=== PATIENT | male | born 1980 | race Caucasian/White ===

== ENCOUNTER 2016-11-01 15:54 | Inpatient (IN) | payer OTHER ==
[2016-11-01 16:46] VITALS: BMI 32.8
--- NOTE | 2016-11-01 18:39 | HP ---
CIWA Score - CIWA Score Nausea/Vomitin-Mild Nausea/No Vomiting Muscle Tremors: 5 Anxiety: 4-Mod. Anxious/Guarded Agitation: 4-Moderately Restless Paroxysmal Sweats: 2 Orientation: 1-Uncertain about Date Tacttile Disturbances: 0-None Auditory Disturbances: 0-None Visual Disturbances: 0-None Headache: 3-Moderate CIWA-Ar Total Score: 20 Admission ROS S - HPI Chief Complaint: WITHDRAWAL SX Allergies/Adverse Reactions: Allergies Allergy/AdvReac Type Severity Reaction Status Date / Time codeine Allergy Verified 11/01/16 18:35 Penicillins Allergy Verified 11/01/16 18:35 phenytoin sodium Allergy Verified 11/01/16 18:35 [From Dilantin] phenytoin sodium extended Allergy Verified 11/01/16 18:35 [From Dilantin] History of Present Illness: 36 YEARS OLD MALE WITH LONG HISTORY OF XANAX ALCOHOL DEPENDENCE HAS HEAD TRAUMA SEIZURE SINCE 2002 AND ANXIETY IS ADMITTED TO DETOX Exam Limitations: No Limitations - Ebola screening Have you traveled outside of the country in the last 21 days: No Have you had contact with anyone from an Ebola affected area: No Have you been sick,other than usual withdrawal symptoms: No Do you have a fever: No - Review of Systems Constitutional: Chills, Changes in sleep, Weight Stable EENT: reports: No Symptoms Reported Respiratory: reports: No Symptoms reported Cardiac: reports: No Symptoms Reported GI: reports: Poor Fluid Intake, Abdominal cramping : reports: No Symptoms Reported Musculoskeletal: reports: Back Pain (SURGERIES), Joint Pain, Muscle Pain, Neck Pain Integumentary: reports: No Symptoms Reported Neuro: reports: Seizure, Tremors Endocrine: reports: No Symptoms Reported Hematology: reports: No Symptoms Reported Psychiatric: reports: Judgement Intact, Orientated x3, Anxious Other Systems: Reviewed and Negative Patient History - Patient Medical History Hx Anemia: No Hx Asthma: No Hx Chronic Obstructive Pulmonary Disease (COPD): No Hx Cancer: No Hx Cardiac Disorders: No Hx Hypertension: No Hx Hypercholesterolemia: No Hx Pacemaker: No Hx Seizures: Yes (2002) Hx Dementia: No Hx Diabetes: No Hx Gastrointestinal Disorders: No Hx Liver Disease: No Hx Genitourinary Disorders: No Hx Sexually Transmitted Disorders: No Hx Renal Disease (ESRD): No Hx Thyroid Disease: No Hx Human Immunodeficiency Virus (HIV): No Hx Hepatitis C: No Hx Depression: Yes Hx Suicide Attempt: No Hx Bipolar Disorder: No Hx Schizophrenia: No - Patient Surgical History Past Surgical History: Yes Hx Neurologic Surgery: Yes (SPINE 2002 + 2013) Hx Cataract Extraction: No Hx Cardiac Surgery: No Hx Lung Surgery: No Hx Breast Surgery: No Hx Breast Biopsy: No Hx Abdominal Surgery: No Hx Appendectomy: Yes (CHILD) Hx Cholecystectomy: No Hx Genitourinary Surgery: No Hx Orthopedic Surgery: No Other Surgical History: LEGS SKIN GRAFT - PPD History Previous Implant?: Yes Documented Results: Positive w/o proof Implanted On Prior R Admission?: No PPD to be Administered?: No - Smoking Cessation Smoking history: Former smoker Have you smoked in the past 12 months: No Hx Chewing Tobacco Use: No Initiated information on smoking cessation: No - Substance & Tx. History Hx Alcohol Use: Yes Hx Substance Use: Yes Substance Use Type: Alcohol, Tranquilizers Hx Substance Use Treatment: Yes - Substances Abused Alcohol Route: Oral Frequency: Daily Amount used: 2 PINTS VOLKA Age of first use: 15 Date of Last Use: 10/31/16 Alprazolam (Xanax) Route: Oral Frequency: Daily Amount used: 20 MG Age of first use: 26 Date of Last Use: 11/01/16 Family Disease History - Family Disease History Family Disease History: Diabetes: Grandparent, CA: Mother (OVARY ), Other: Father (VASCULAR ) Admission Physical Exam BHS - Vital Signs Vital Signs: Vital Signs - 24 hr 11/01/16 16:41 Temperature 97.7 F Pulse Rate 77 Respiratory 18 Rate Blood Pressure 155/91 - Physical General Appearance: Yes: Nourished, Appropriately Dressed, Moderate Distress, Tremorous, Irritable, Sweating, Anxious HEENTM: Yes: Hearing grossly Normal, Normal ENT Inspection, Normocephalic, Normal Voice Respiratory: Yes: Chest Non-Tender, Lungs Clear, Normal Breath Sounds, No Respiratory Distress, No Accessory Muscle Use Neck: Yes: Supple, Trachea in good position Breast: Yes: Breasts Symetrical Cardiology: Yes: Regular Rhythm, Regular Rate, S1, S2 Abdominal: Yes: Non Tender, Soft Genitourinary: Yes: Within Normal Limits Back: Yes: Normal Inspection Musculoskeletal: Yes: full range of Motion, Gait Steady, Back pain, Muscle Pain Extremities: Yes: Normal Inspection, Normal Range of Motion, Non-Tender, Tremors Neurological: Yes: Alert, Motor Strength 5/5, Normal Mood/Affect, Normal Response Integumentary: Yes: Warm, Moist Lymphatic: Yes: Within Normal Limits - Diagnostic (1) Alcohol dependence with uncomplicated withdrawal Current Visit: Yes Status: Acute (2) Sedative, hypnotic or anxiolytic dependence with withdrawal, uncomplicated Current Visit: Yes Status: Acute (3) S/P skin graft using Integra Current Visit: Yes Status: Resolved Comment: 2002 (4) PPD positive, treated Current Visit: Yes Status: Resolved Comment: CHEST X RAY PENDING (5) Seizure disorder Current Visit: Yes Status: Acute Comment: 2002 HEAD TRAUMA RELATED LAST EPISODE 6 MONTHS AGO DUE TO STOP KEPPRA (6) Methadone maintenance therapy patient Current Visit: Yes Status: Acute Comment: 150 MG PO DAILY VERIFICAITON PENDING Cleared for Admission S - Detox or Rehab [facility] Level of Care: Medically Managed Detox Regimen/Protocol: Valium S Breath Alcohol Content Breath Alcohol Content: 0 Urine Drug Screen - Results Drug Screen Negative: No Urine Drug Screen Results: BZO-Benzodiazepines, MTD-Methadone
[2016-11-01] MEDS ORDERED: diazePAM 5 MG TABLET PO ONE (18:47)
[2016-11-01] MEDS ORDERED: LOPERAMIDE HCL 2 MG CAPSULE PO PRN (18:47)
[2016-11-01] MEDS ORDERED: MENTHOL/PHENOL 1 EACH UD MM PRN (18:47)
[2016-11-01] MEDS ORDERED: IBUPROFEN 400 MG TABLET (FP) PO PRN (18:47)
[2016-11-01] MEDS ORDERED: diphenhydrAMINE HCL 50 MG CAPSULE PO PRN (18:47)
[2016-11-01] MEDS ORDERED: P-EPHED 60MG/TRIPROLIDI 2.5MG TABLET PO PRN (18:47)
[2016-11-01] MEDS ORDERED: MAGNESIUM CITRATE 300 ML BOTTLE PO PRN (18:47)
[2016-11-01] MEDS ORDERED: MAG HYDROX/AL HYDROX/SIMETH 30 ML UNIT-DOSE CUP PO PRN (18:47)
[2016-11-01] MEDS ORDERED: guaiFENesin/D-METHORPHAN HB 10 ML UNIT-DOSE CUPS PO PRN (18:47)
[2016-11-01] MEDS ORDERED: ACETAMINOPHEN 325 MG TABLET (FP) PO PRN (18:47)
[2016-11-01] MEDS ORDERED: MAGNESIUM HYDROX 2400MG/30ML ORAL SUSPENSION 30 ML CUP PO PRN (18:47)
[2016-11-01] MEDS: levETIRAcetam 500 MG TABLET (FP) PO SCH (22:23)
[2016-11-01] MEDS: diazePAM 5 MG TABLET PO SCH (22:24)
[2016-11-01] MEDS: CYCLOBENZAPRINE HCL 10 MG TABLET (FP) PO PRN (22:24)
[2016-11-01] MEDS: cloNIDine HCL 0.1 MG TABLET PO PRN (22:24)
[2016-11-01] MEDS: THIAMINE HCL 100 MG TABLET (FP) PO SCH (22:25)
[2016-11-01 23:06] LABS: URINE APPEARANCE CLEAR; URINE BILIRUBIN NEGATIVE (NEGATIVE); URINE BLOOD NEGATIVE (NEGATIVE); URINE COLOR LTYELLOW; URINE GLUCOSE (UA) NEGATIVE (NEGATIVE); URINE KETONE NEGATIVE (NEGATIVE); URINE NITRITE NEGATIVE (NEGATIVE); URINE PROTEIN NEGATIVE (NEGATIVE); URINE UROBILINOGEN NEGATIVE E.U./dl (0.2-1.0)
[2016-11-01 23:12] LABS: URINE LEUK ESTERASE TRACE (NEGATIVE)
[2016-11-02] MEDS: diazePAM 5 MG TABLET PO SCH ×3 (05:36→22:41)
[2016-11-02] MEDS ORDERED: METHADONE HCL 10 MG TABLET PO ONE (08:10)
[2016-11-02] MEDS ORDERED: METHADONE 120 MG, METHADONE 30 MG PO ONE (08:15)
[2016-11-02] MEDS ORDERED: METHADONE HCL 10 MG TABLET ONE (09:22)
[2016-11-02] MEDS ORDERED: METHADONE HCL 40 MG DISPERSABLE TABLET ONE (09:22)
--- NOTE | 2016-11-02 09:30 | CONSULT ---
[facility] Psychiatric Consult - Data Date of interview: 11/02/16 Admission source: [facility] Identifying data: This is 36 years old male with no psychiatric hospitalization history intoxzicated with: Alcohol, Xanax Substance Abuse History: - Smoking Cessation. Smoking history: Former smoker. Have you smoked in the past 12 months: No. Hx Chewing Tobacco Use: No. Initiated information on smoking cessation: No. - Substance & Tx. History. Hx Alcohol Use: Yes. Hx Substance Use: Yes. Substance Use Type: Alcohol, Tranquilizers. Hx Substance Use Treatment: Yes. - Substances Abused. Alcohol. Route: Oral. Frequency: Daily. Amount used: 2 PINTS VOLKA. Age of first use: 15. Date of Last Use: 10/31/16. Alprazolam (Xanax). Route: Oral. Frequency: Daily. Amount used: 20 MG. Age of first use: 26. Date of Last Use: 11/01/16 Medical History: Seizure history, MMTP history Psychiatric History: Patient reprots anxiety history, reports no medications taking prior to admission Physical/Sexual Abuse/Trauma History: Denies Additional Comment: Observation. Detox Unit Care Protocol Mental Status Exam - Mental Status Exam Alert and Oriented to: Person Cognitive Function: Fair Patient Appearance: Unkempt Mood: Sad Affect: Flat Patient Behavior: Sedated Speech Pattern: Delayed Voice Loudness: Mildly Soft/Quiet Thought Process: Circumstantial Thought Disorder: Being Controlled Hallucinations: Denies Suicidal Ideation: Denies Homicidal Ideation: Denies Insight/Judgement: Fair Sleep: Difficulty falling asleep Appetite: Weight loss Muscle strength/Tone: Mild Hypotonicity Gait/Station: Shuffling Additional Comments: Observation. Detox Unit Care Protocol Psychiatric Findings - Problem List ([place] 1, 2,3) (1) Alcohol dependence with uncomplicated withdrawal Current Visit: Yes Status: Acute (2) Methadone maintenance therapy patient Current Visit: Yes Status: Acute Comment: 150 MG PO DAILY VERIFICAITON PENDING (3) Sedative, hypnotic or anxiolytic dependence with withdrawal, uncomplicated Current Visit: Yes Status: Acute (4) Drug-induced mood disorder Current Visit: Yes Status: Acute - Initial Treatment Plan Initial Treatment Plan: Observation. Detox Unit Care Protocol
--- NOTE | 2016-11-02 10:42 | EKG ---
Test Reason : Blood Pressure : / mmHG Vent. Rate : 054 BPM Atrial Rate : 054 BPM P-R Int : 302 ms QRS Dur : 094 ms QT Int : 462 ms P-R-T Axes : 066 -05 047 degrees QTc Int : 438 ms SINUS BRADYCARDIA WITH 1ST DEGREE A-V BLOCK NONSPECIFIC T WAVE ABNORMALITY ABNORMAL ECG WHEN COMPARED WITH ECG OF 01-NOV-2016 21:47, NONSPECIFIC T WAVE ABNORMALITY, WORSE IN LATERAL LEADS Confirmed by BEAU BOLANOS MD ([id number]) on 11/02/2016 10:42:30 AM Referred By: Confirmed By:BEAU BOLANOS MD
[2016-11-02] MEDS: PRENATAL VITAMINS W/ FOLIC ACID TABLET (FP) PO SCH (10:48)
[2016-11-02] MEDS: levETIRAcetam 500 MG TABLET (FP) PO SCH ×2 (10:48→22:41)
[2016-11-02] MEDS: cloNIDine HCL 0.1 MG TABLET PO PRN ×2 (10:48→22:43)
[2016-11-02] MEDS: CYCLOBENZAPRINE HCL 10 MG TABLET (FP) PO PRN (10:48)
[2016-11-02] MEDS: diazePAM 5 MG TABLET PO PRN (10:48)
--- NOTE | 2016-11-02 11:17 | PN ---
[facility] CIWA - CIWA Score Nausea/Vomitin Muscle Tremors: 3 Anxiety: 3 Agitation: 2 Paroxysmal Sweats: 1-Minimal Palms Moist Orientation: 0-Oriented Tacttile Disturbances: 1-Very Mild Itch/Numbness Auditory Disturbances: 1-Very Mild Visual Disturbances: 1-Very Mild Sensitivity Headache: 2-Mild CIWA-Ar Total Score: 17 BHS Progress Note (SOAP) Subjective: ALERT,IRRITABLE,ANXIOUS,INTERRUPTED SLEEP,TREMOR,INTERRUPTED SLEEP Objective: 11/02/16 11:13 Vital Signs Temperature 97 F L 11/02/16 09:58 Pulse Rate 64 11/02/16 09:58 Respiratory Rate 16 11/02/16 09:58 Blood Pressure 134/75 11/02/16 09:58 O2 Sat by Pulse Oximetry (%) EKG SINUS BRADYCARDIA,1ST DEGREE AV BLOCK,54/MIN NO CHEST PAIN,NO SOB,NO DIZZINESS Laboratory Last Values Urine Color Ltyellow 11/01/16 22:05 Urine Appearance Clear 11/01/16 22:05 Urine pH 7.0 (5.0-8.0) 11/01/16 22:05 Ur Specific [place] 1.014 (1.001-1.035) 11/01/16 22:05 Urine Protein Negative (NEGATIVE) 11/01/16 22:05 Urine Glucose (UA) Negative (NEGATIVE) 11/01/16 22:05 Urine Ketones Negative (NEGATIVE) 11/01/16 22:05 Urine Blood Negative (NEGATIVE) 11/01/16 22:05 Urine Nitrite Negative (NEGATIVE) 11/01/16 22:05 Urine Bilirubin Negative (NEGATIVE) 11/01/16 22:05 Urine Urobilinogen Negative E.U./dl (0.2-1.0) 11/01/16 22:05 Ur Leukocyte Esterase Trace (NEGATIVE) H 11/01/16 22:05 LABS PENDING Assessment: 11/02/16 11:16 WITHDRAWAL SYMPTOM Plan: CONTINUE DETOX
[2016-11-02] MEDS: LIDOCAINE 5% TOPICAL PATCH TP SCH (11:26)
--- NOTE | 2016-11-02 13:34 | EKG ---
Test Reason : Blood Pressure : / mmHG Vent. Rate : 068 BPM Atrial Rate : 068 BPM P-R Int : 250 ms QRS Dur : 106 ms QT Int : 416 ms P-R-T Axes : 071 -02 054 degrees QTc Int : 442 ms SINUS RHYTHM WITH 1ST DEGREE A-V BLOCK INCOMPLETE RIGHT BUNDLE BRANCH BLOCK BORDERLINE ECG NO PREVIOUS ECGS AVAILABLE Confirmed by BEAU BOLANOS MD ([id number]) on 11/02/2016 1:34:01 PM Referred By: Confirmed By:BEAU BOLANOS MD
[2016-11-02] MEDS: THIAMINE HCL 100 MG TABLET (FP) PO SCH (22:42)
[2016-11-03] MEDS ORDERED: METHADONE HCL 10 MG TABLET ONE (04:28)
[2016-11-03] MEDS ORDERED: METHADONE HCL 40 MG DISPERSABLE TABLET ONE (04:29)
[2016-11-03] MEDS: METHADONE 120 MG, METHADONE 30 MG PO SCH (04:59)
[2016-11-03] MEDS: diazePAM 5 MG TABLET PO PRN ×3 (04:59→18:58)
[2016-11-03] MEDS ORDERED: METHADONE HCL 40 MG DISPERSABLE TABLET PO SCH (06:00)
[2016-11-03 09:38] LABS: MCHC 32.6 g/dl (32.0-35.9); MEAN CELL VOLUME 79.5 fl (80-96); MEAN PLT VOLUME 9.3 fl (7.5-11.1); PLATELET COUNT 202 K/MM3 (134-434); RDW 14.6 % (11.9-15.9); WHITE BLOOD COUNT 6.6 K/mm3 (4.0-10.0)
[2016-11-03] MEDS: LIDOCAINE 5% TOPICAL PATCH TP SCH (10:00)
[2016-11-03] MEDS: PRENATAL VITAMINS W/ FOLIC ACID TABLET (FP) PO SCH (10:13)
[2016-11-03] MEDS: cloNIDine HCL 0.1 MG TABLET PO PRN (10:13)
[2016-11-03] MEDS: levETIRAcetam 500 MG TABLET (FP) PO SCH ×2 (10:13→22:06)
[2016-11-03] MEDS: diazePAM 5 MG TABLET PO SCH ×2 (10:13→22:07)
[2016-11-03] MEDS: CYCLOBENZAPRINE HCL 10 MG TABLET (FP) PO PRN ×2 (10:13→22:07)
[2016-11-03 10:14] LABS: ALBUMIN 3.7 g/dl (3.4-5.0); ALK PHOS 64 U/L (45-117); ANION GAP 7 (8-16); BILIRUBIN,TOTAL 0.2 mg/dL (0.2-1.0); CALCIUM 9.1 mg/dL (8.5-10.1); CO2 30 mmol/L (21-32); CREATININE 0.9 mg/dL (0.7-1.3); GLUCOSE,RANDOM 93 mg/dL (74-106); SGOT/AST 9 U/L (15-37); SGPT/ALT 16 U/L (12-78)
[2016-11-03 12:09] LABS: HIV 1 & 2 AB NEGATIVE; HIV 1 AGp24 NEGATIVE
--- NOTE | 2016-11-03 12:40 | PN ---
S CIWA - CIWA Score Nausea/Vomitin-No Nausea/No Vomiting Muscle Tremors: 4-Moderate,w/Arms Extend Anxiety: 4-Mod. Anxious/Guarded Agitation: 4-Moderately Restless Paroxysmal Sweats: 3 Orientation: 0-Oriented Tacttile Disturbances: 0-None Auditory Disturbances: 0-None Visual Disturbances: 0-None Headache: 0-None Present CIWA-Ar Total Score: 15 BHS Progress Note (SOAP) Subjective: shakes sweats agitation body aches nausea anxiety muscle spasms Objective: 11/03/16 12:39 Vital Signs Temperature 98.4 F 11/03/16 10:02 Pulse Rate 68 11/03/16 10:02 Respiratory Rate 18 11/03/16 10:02 Blood Pressure 129/81 11/03/16 10:02 O2 Sat by Pulse Oximetry (%) Laboratory Tests 11/01/16 11/03/16 11/03/16 22:05 06:30 06:30 WBC 6.6 RBC 4.84 Hgb 12.6 Hct 38.5 MCV 79.5 L MCHC 32.6 RDW 14.6 Plt Count 202 MPV 9.3 Sodium 140 Potassium 4.0 Chloride 103 Carbon Dioxide 30 Anion Gap 7 L BUN 12 Creatinine 0.9 Creat Clearance w eGFR > 60 Random Glucose 93 Calcium 9.1 Total Bilirubin 0.2 AST 9 L ALT 16 Alkaline Phosphatase 64 Total Protein 7.0 Albumin 3.7 Urine Color Ltyellow Urine Appearance Clear Urine pH 7.0 Ur Specific [place] 1.014 Urine Protein Negative Urine Glucose (UA) Negative Urine Ketones Negative Urine Blood Negative Urine Nitrite Negative Urine Bilirubin Negative Urine Urobilinogen Negative Ur Leukocyte Esterase Trace H HIV 1&2 Antibody Screen HIV P24 Antigen 11/03/16 06:30 WBC RBC Hgb Hct MCV MCHC RDW Plt Count MPV Sodium Potassium Chloride Carbon Dioxide Anion Gap BUN Creatinine Creat Clearance w eGFR Random Glucose Calcium Total Bilirubin AST ALT Alkaline Phosphatase Total Protein Albumin Urine Color Urine Appearance Urine pH Ur Specific [place] Urine Protein Urine Glucose (UA) Urine Ketones Urine Blood Urine Nitrite Urine Bilirubin Urine Urobilinogen Ur Leukocyte Esterase HIV 1&2 Antibody Screen Negative HIV P24 Antigen Negative awake/alert ambulating no acute distress Assessment: 11/03/16 12:40 withdrawal sx Plan: continue detox increase fluids tigan po prn motrin/tylenol prn
[2016-11-03] MEDS: cloNIDine HCL 0.1 MG TABLET PO SCH (22:07)
[2016-11-03] MEDS: THIAMINE HCL 100 MG TABLET (FP) PO SCH (22:08)
[2016-11-04] MEDS ORDERED: METHADONE HCL 10 MG TABLET ONE (04:43)
[2016-11-04] MEDS ORDERED: METHADONE HCL 40 MG DISPERSABLE TABLET ONE (04:44)
[2016-11-04] MEDS: METHADONE 120 MG, METHADONE 30 MG PO SCH (05:32)
[2016-11-04] MEDS: diazePAM 5 MG TABLET PO PRN ×3 (06:34→18:44)
[2016-11-04] MEDS: LIDOCAINE 5% TOPICAL PATCH TP SCH (10:19)
[2016-11-04] MEDS: diazePAM 5 MG TABLET PO SCH ×2 (10:20→22:19)
[2016-11-04] MEDS: cloNIDine HCL 0.1 MG TABLET PO SCH ×2 (10:20→22:19)
[2016-11-04] MEDS: levETIRAcetam 500 MG TABLET (FP) PO SCH ×2 (10:20→22:19)
[2016-11-04] MEDS: PRENATAL VITAMINS W/ FOLIC ACID TABLET (FP) PO SCH (10:21)
--- NOTE | 2016-11-04 11:28 | PN ---
S Progress Note (SOAP) Subjective: ALERT,IRRITABLE,ANXIOUS,INTERRUPTED SLEEP,NAUSEA Objective: 11/04/16 11:28 Vital Signs Temperature 98.1 F 11/04/16 10:28 Pulse Rate 76 11/04/16 10:28 Respiratory Rate 16 11/04/16 10:28 Blood Pressure 122/87 11/04/16 10:28 O2 Sat by Pulse Oximetry (%) Assessment: 11/04/16 11:28 WITHDRAWAL SYMPTOM Plan: CONTINUE DETOX,DISCHARGE IN AM
[2016-11-04 13:52] VITALS: TEMP 97.7
[2016-11-04] MEDS: THIAMINE HCL 100 MG TABLET (FP) PO SCH (22:19)
[2016-11-04] MEDS: CYCLOBENZAPRINE HCL 10 MG TABLET (FP) PO PRN (22:19)
[2016-11-05] MEDS ORDERED: METHADONE HCL 40 MG DISPERSABLE TABLET ONE (05:49)
[2016-11-05] MEDS ORDERED: METHADONE HCL 10 MG TABLET ONE (05:49)
[2016-11-05] MEDS: METHADONE 120 MG, METHADONE 30 MG PO SCH (05:50)
[2016-11-05 06:37] VITALS: BP 134/76; PULSE 48
[2016-11-05] MEDS ORDERED: diazePAM 5 MG TABLET PO ONE (08:22)
[2016-11-05] MEDS ORDERED: levETIRAcetam 500 MG TABLET (FP) PO ONE (08:22)
--- NOTE | 2016-11-05 08:32 | PN ---
S Progress Note (SOAP) Subjective: ALERT,NO COMPLAINT Objective: 11/05/16 08:29 Vital Signs Temperature 97.7 F 11/05/16 06:00 Pulse Rate 48 L 11/05/16 06:00 Respiratory Rate 18 11/05/16 06:00 Blood Pressure 134/76 11/05/16 06:00 O2 Sat by Pulse Oximetry (%) Assessment: 11/05/16 08:30 DETOX COMPLETED,NO WITHDRAWAL SYMPTOM Plan: DISCHARGE TODAY,FOLLOW UP WITH AFTER CARE PROGRAM ARRANGEMENT AND PMD FOR MEDICAL PROBLEM, PATIENT HAS HIS MEDICATION AT HOME
--- NOTE | 2016-11-05 08:37 | DS ---
[facility] Detox Discharge Summary Admission Date: 11/01/16 Discharge Date: 11/05/16 - History Present History: Alcohol Dependence, Sedative Dependence, MMTP Additional Comments: DISCHARGR IN GOOD CONDITION,FOLLOW UP WITH AFTER CARE PROGRAM AND METHADONE CLINIC AND PMD AND OWN NEUROLOGIST FOR FOLLOW UP,PATIENT HAS HIS MEDICATIONS AT THE PHARMACY Pertinent Past History: SEIZURE - Physical Exam Results Vital Signs: Vital Signs Temperature 97.7 F 11/05/16 06:00 Pulse Rate 48 L 11/05/16 06:00 Respiratory Rate 18 11/05/16 06:00 Blood Pressure 134/76 11/05/16 06:00 O2 Sat by Pulse Oximetry (%) Pertinent Admission Physical Exam Findings: WITHDRAWAL SYMPTOM - Treatment Hospital Course: Detox Protocol Followed, Detoxed Safely, Responded well, Discharged Condition Good Patient has Accepted a Rehab Referral to: DECLINED - Medication Discharge Medications: Ambulatory Orders Levetiracetam [Keppra -] 1,500 mg PO BID 11/01/16 - AMA Did Patient Leave Against Medical Advice: No
[2016-11-05] MEDS ORDERED: diazePAM 5 MG TABLET PO SCH (10:00)
== END 2016-11-05 08:35 | disposition home or self-care (01) | DRG 897 ==
LOC: YASAS 15:54 → Y6N 19:54
PROVIDERS: ADMIT Internal Medicine; ATTEND Internal Medicine
PROC: HZ2ZZZZ Detoxification Services for Substance Abuse Treatment (ICD-10-PCS; principal; 2016-11-05)
DX: F11.23 Opioid dependence with withdrawal (principal); R56.1 Post traumatic seizures; F13.230 Sedative, hypnotic or anxiolytic dependence with withdrawal, uncomplicated; F19.29 Other psychoactive substance dependence with unspecified psychoactive substance-induced disorder; R76.11 Nonspecific reaction to tuberculin skin test without active tuberculosis
CPT/HCPCS: 36415; 71020-TC; 80053; 81003; 81015; 85027; 86593; 87389; 93005; 93010